=== PATIENT | male | born 1970 | race Caucasian/White ===

== ENCOUNTER 2016-09-04 16:05 | Emergency (ER) | payer SELFPAY ==
[~2016-09-04] VITALS: Ht 180.3 cm; Wt 95.3 kg
[2016-09-04 16:06] VITALS: BP 129/82
[2016-09-04 16:59] LABS: ASPARTATE AMINO TRANSFERASE 22 U/L (15-37); BLOOD UREA NITROGEN 17 mg/dL (7-18)
== END 2016-09-04 17:37 | disposition home or self-care (01) ==
LOC: ED 17:31
DX: S90.122A Contusion of left lesser toe(s) without damage to nail, initial encounter (principal); X58.XXXA Exposure to other specified factors, initial encounter; Y93.89 Activity, other specified; Y92.89 Other specified places as the place of occurrence of the external cause; Y99.8 Other external cause status
CPT/HCPCS: 36415; 80053; 85025; 85610; 85730; 99285